=== PATIENT | female | born 1955 | race Caucasian/White ===

== ENCOUNTER 2022-12-29 20:34 | Emergency (ER) | payer MEDICARE ==
[2022-12-29] MEDS ORDERED: Albuterol/Ipratropium 3.0-0.5 MG/3 ML Neb Soln NEB ONE (22:03)
[2022-12-29] MEDS ORDERED: Acetaminophen 325 MG Tab PO ONE (22:03)
[2022-12-29] MEDS ORDERED: Lidocaine 4% 1 each Patch TOP PRN (22:03)
[2022-12-29] MEDS ORDERED: Doxycycline 100 MG Cap PO ONE (23:00)
[2022-12-29] MEDS ORDERED: Amoxicillin/Clavulanate K 875-125 MG Tab PO ONE (23:02)
[2022-12-29] MEDS ORDERED: Albuterol 8 GM Inhaler INH ONE (23:03)
== END 2022-12-30 00:39 | disposition home or self-care (01) ==
LOC: MW.ED 20:34
DX: J18.9 Pneumonia, unspecified organism (principal); I10 Essential (primary) hypertension; E78.00 Pure hypercholesterolemia, unspecified; J45.909 Unspecified asthma, uncomplicated; Z88.2 Allergy status to sulfonamides; Z79.899 Other long term (current) drug therapy
CPT/HCPCS: 71045; 94640; 99285; A9270; 99283; J7620-GY

== ENCOUNTER 2024-02-01 11:33 | Inpatient (IN) | payer BC, MEDICARE ==
[2024-02-01] MEDS: Acetaminophen 500 MG Tab PO STA (12:14)
[2024-02-01] MEDS: Piperacillin/Tazobactam 4.5 GM in Sodium Chloride 0.9% 100 ML IV STA (12:14)
[2024-02-01] MEDS: Sodium Chloride 0.9% 500 ML IV STA ×3 (12:14→17:48)
[2024-02-01 12:18] LABS: HEMATOCRIT 44.4 % (37.0-47.0); HEMOGLOBIN 15.1 g/dL (12.0-16.0); MEAN CORPUSCULAR HEMOGLOBIN 29.5 pg (28.0-32.0); MEAN CORPUSCULAR VOLUME 86.9 fL (83.0-99.0); MEAN PLATELET VOLUME 8.6 fL (9.4-12.3); PLATELET COUNT,PLT 163 K/uL (150-400); RED BLOOD CELL COUNT 5.11 M/uL (4.10-5.30); WHITE BLOOD CELL COUNT,WBC 7.12 K/uL (3.9-11.3)
[2024-02-01] MEDS: Albuterol/Ipratropium 3.0-0.5 MG/3 ML Neb Soln NEB STA (12:32)
[2024-02-01] MEDS: Albuterol 0.083% 2.5 MG/3 ML Neb Soln NEB STA (12:33)
[2024-02-01 12:59] LABS: A/G RATIO 0.9 (0.9-1.6); ALANINE AMINOTRANSFERASE,ALT 54 IU/L (14-63); ALBUMIN 3.1 g/dL (3.4-5.0); ALKALINE PHOSPHATASE 87 U/L (46-116); ASPARTATE AMNIOTRANSFERASE,AST 52 IU/L (15-37); BLOOD UREA NITROGEN,BUN 14 mg/dL (7.0-18.0); CALCIUM 8.8 mg/dL (8.5-10.1); CARBON DIOXIDE,CO2 32.2 mmol/L (21.0-32.0); CHLORIDE,CL 96 mmol/L (98-107); CREATININE 1.1 mg/dL (0.6-1.0); GLUCOSE RANDOM 126 mg/dL (74-106); LIPASE 52 U/L (16-77); PROTEIN TOTAL,TP 6.4 g/dL (6.4-8.2); SODIUM,NA 132 mmol/L (136-145)
[2024-02-01 13:02] LABS: BAND ABSOLUTE MAN 1.64; BAND PERCENT MAN 23 %; LACTIC ACID 1.7 mmol/L (0.4-2.0); LYMPHOCYTES ABSOLUTE MAN 0.93 K/uL (1.00-4.80); LYMPHOCYTES PERCENT MAN 13 % (24-44); METAMYELOCYTE ABSOLUTE MAN 0.07; MONOCYTES PERCENT MAN 7 % (0-8)
[2024-02-01 13:03] LABS: ESTIMATED GFR 54 mL/min (>60); SEG NEUTROPHILS ABSOLUTE MAN 4.13 K/uL (1.80-7.70); SEG NEUTROPHILS PERCENT MAN 58 % (41-71)
[2024-02-01 13:04] LABS: MAGNESIUM 1.1 mg/dL (1.8-2.4)
[2024-02-01 13:11] LABS: INR 1.16 (0.86-1.11)
[2024-02-01] MEDS: Magnesium Sulfate/Water Premix 4 GM in Premix Bag 1 BAG IV STA (13:16)
[2024-02-01] MEDS: Ondansetron 4 MG/2 ML SDV IVPUSH STA (13:19)
[2024-02-01] MEDS: Potassium Chloride 20 MEQ Tab.ER PO STA (13:19)
[2024-02-01] MEDS: Sodium Chloride 0.9% 1,000 ML IV STA (13:30)
[2024-02-01] MEDS: Norepinephrine Bit/D5W Premix 250 ML IV STA (14:47)
[2024-02-01] MEDS: Iopamidol 755 MG/ML 500 ML Multipack Bottle IVPUSH STA (16:18)
[2024-02-01 16:40] LABS: APPEARANCE,URINE CLOUDY; BILIRUBIN,URINE NEGATIVE (NEGATIVE); COLOR,URINE YELLOW; GLUCOSE,URINE NEGATIVE (NEGATIVE); KETONES,URINE NEGATIVE (NEGATIVE); LEUKOCYTE ESTERASE,URINE MODERATE (NEGATIVE); NITRITE,URINE NEGATIVE (NEGATIVE); OCCULT BLOOD,URINE MODERATE (NEGATIVE); PH,URINE 6.5 (5.0-8.0); PROTEIN,URINE TRACE mg/dL (NEGATIVE)
[2024-02-01 17:12] LABS: BACTERIA,URINE 4+ (NEGATIVE); EPITHELIAL CELLS,URINE RARE (NONE-FEW); RBC,URINE 0-1 (0-2/HPF)
[2024-02-01] MEDS: VANCOmycin 1.75 GM/350 ML 1.75 GM in Premix Bag 1 BAG IV ONE (17:48)
[2024-02-01] MEDS: Azithromycin 500 MG in Sodium Chloride 0.9% 250 ML IV STA (17:49)
[2024-02-01] MEDS: Norepinephrine Bit/D5W Premix 250 ML IV SCH (20:22)
[2024-02-01] MEDS: Cefepime 2 GM in Sodium Chloride 0.9% 50 ML IV SCH (21:05)
[2024-02-01] MEDS: Enoxaparin 40 MG/0.4 ML Syringe SUBCUT SCH (21:31)
[2024-02-01] MEDS: Cefepime 1 GM in Sodium Chloride 0.9% 50 ML IV SCH (21:40)
[2024-02-02] MEDS: Albuterol/Ipratropium 3.0-0.5 MG/3 ML Neb Soln NEB SCH (01:13)
[2024-02-02 06:17] LABS: HEMATOCRIT 37.7 % (37.0-47.0); HEMOGLOBIN 12.4 g/dL (12.0-16.0); MEAN CORPUSCULAR HEMOGLOBIN 29.2 pg (28.0-32.0); MEAN CORPUSCULAR HGB CONC 32.9 g/dL (32.0-36.0); MEAN CORPUSCULAR VOLUME 88.7 fL (83.0-99.0); MEAN PLATELET VOLUME 8.7 fL (9.4-12.3); PLATELET COUNT,PLT 112 K/uL (150-400); RED BLOOD CELL COUNT 4.25 M/uL (4.10-5.30); WHITE BLOOD CELL COUNT,WBC 10.93 K/uL (3.9-11.3)
[2024-02-02 06:38] LABS: A/G RATIO 0.8 (0.9-1.6); ALBUMIN 2.3 g/dL (3.4-5.0); BILIRUBIN TOTAL 0.7 mg/dL (0.2-1.0); CALCIUM 7.6 mg/dL (8.5-10.1); CARBON DIOXIDE,CO2 26.9 mmol/L (21.0-32.0); CREATININE 0.8 mg/dL (0.6-1.0); EST CRCL DRUG DOSING (CG) 54.13 mL/min; MAGNESIUM 2.2 mg/dL (1.8-2.4); PHOSPHORUS 2.2 mg/dL (2.6-4.7); POTASSIUM,K 3.1 mmol/L (3.5-5.1); PROTEIN TOTAL,TP 5.2 g/dL (6.4-8.2)
[2024-02-02 07:19] LABS: BAND ABSOLUTE MAN 1.64; BAND PERCENT MAN 15 %; LYMPHOCYTES ABSOLUTE MAN 1.31 K/uL (1.00-4.80); LYMPHOCYTES PERCENT MAN 12 % (24-44); MONOCYTES ABSOLUTE MAN 1.09 K/uL (0.00-0.80); MONOCYTES PERCENT MAN 10 % (0-8); SEG NEUTROPHILS ABSOLUTE MAN 6.89 K/uL (1.80-7.70); SEG NEUTROPHILS PERCENT MAN 63 % (41-71)
[2024-02-02] MEDS ORDERED: Albuterol 0.083% 2.5 MG/3 ML Neb Soln NEB PRN (07:22)
[2024-02-02] MEDS: Potassium Chloride 20 MEQ Tab.ER PO ONE (08:07)
[2024-02-02] MEDS: predniSONE 1 MG Tab PO SCH (08:12)
[2024-02-02] MEDS ORDERED: Loperamide 2 MG Cap PO PRN (10:09)
[2024-02-02] MEDS ORDERED: Psyllium Husk Powder Sugar Free 5.85 GM Packet PO SCH (10:15)
[2024-02-02] MEDS: Phosphorus #1 250 MG Tab PO SCH ×2 (12:57→14:33)
[2024-02-02] MEDS: Azithromycin 500 MG in Sodium Chloride 0.9% 250 ML IV SCH (17:59)
[2024-02-02] MEDS ORDERED: Zinc Oxide 13% Crm 56 GM Tube TOP PRN (18:13)
[2024-02-02] MEDS: Ibuprofen 400 MG Tab PO PRN (18:26)
[2024-02-02] MEDS: Benzonatate 100 MG Cap PO PRN (18:27)
[2024-02-02] MEDS: Zinc Oxide 13% Crm 56 GM Tube TOP SCH (20:04)
[2024-02-02] MEDS: guaiFENesin 600 MG Tab.ER PO PRN (20:13)
[2024-02-03 05:07] LABS: BORDETELLA PARAPERT IS1001 Not Detected (Not Detected)
[2024-02-03 06:48] LABS: HEMATOCRIT 34.8 % (37.0-47.0); HEMOGLOBIN 11.7 g/dL (12.0-16.0); MEAN CORPUSCULAR HGB CONC 33.6 g/dL (32.0-36.0); MEAN CORPUSCULAR VOLUME 89.2 fL (83.0-99.0); MEAN PLATELET VOLUME 8.9 fL (9.4-12.3); PLATELET COUNT,PLT 125 K/uL (150-400); WHITE BLOOD CELL COUNT,WBC 11.25 K/uL (3.9-11.3)
[2024-02-03 06:58] LABS: A/G RATIO 0.9 (0.9-1.6); ALBUMIN 2.4 g/dL (3.4-5.0); BILIRUBIN TOTAL 0.6 mg/dL (0.2-1.0); CALCIUM 7.5 mg/dL (8.5-10.1); CARBON DIOXIDE,CO2 24.6 mmol/L (21.0-32.0); CREATININE 0.7 mg/dL (0.6-1.0); EST CRCL DRUG DOSING (CG) 61.86 mL/min; PHOSPHORUS 2.5 mg/dL (2.6-4.7); POTASSIUM,K 3.9 mmol/L (3.5-5.1)
[2024-02-03 08:07] LABS: BAND ABSOLUTE MAN 0.56; BAND PERCENT MAN 5 %; LYMPHOCYTES ABSOLUTE MAN 1.24 K/uL (1.00-4.80); LYMPHOCYTES PERCENT MAN 11 % (24-44); METAMYELOCYTE ABSOLUTE MAN 0.11; METAMYELOCYTE PERCENT MAN 1 %; MONOCYTES ABSOLUTE MAN 0.23 K/uL (0.00-0.80); MONOCYTES PERCENT MAN 2 % (0-8); SEG NEUTROPHILS ABSOLUTE MAN 9.11 K/uL (1.80-7.70); SEG NEUTROPHILS PERCENT MAN 81 % (41-71)
[2024-02-03] MEDS ORDERED: Sodium Phosphate 15 mMole/5 ML SDV IV ONE (09:00)
[2024-02-03] MEDS: Sodium Phosphate 15 MMOLE in Sodium Chloride 0.9% 250 ML IV ONE (09:27)
[2024-02-03] MEDS: Calcium Gluc in NaCl, ISO-OSM 1,000 MG in Premix Bag 1 BAG IV ONE (09:27)
[2024-02-03] MEDS: Metoprolol Succinate 100 MG Tab.ER PO SCH (22:31)
[2024-02-04 06:35] LABS: BASOPHILS ABSOLUTE AUTO 0.02 K/uL (0.00-0.20); BASOPHILS PERCENT AUTO 0.2 % (0.0-1.0); EOSINOPHILS PERCENT AUTO 1.1 % (0.0-6.0); HEMATOCRIT 35.3 % (37.0-47.0); HEMOGLOBIN 11.6 g/dL (12.0-16.0); IMMATURE GRAN PERCENT AUTO 1.1 % (0.0-0.4); LYMPHOCYTES ABSOLUTE AUTO 0.97 K/uL (1.00-4.80); LYMPHOCYTES PERCENT AUTO 10.5 % (24.0-44.0); MEAN CORPUSCULAR HGB CONC 32.9 g/dL (32.0-36.0); MEAN CORPUSCULAR VOLUME 88.3 fL (83.0-99.0); MEAN PLATELET VOLUME 8.6 fL (9.4-12.3); MONOCYTES PERCENT AUTO 5.4 % (0.0-8.0); NEUTROPHILS ABSOLUTE AUTO 7.51 K/uL (1.80-7.70); NEUTROPHILS PERCENT AUTO 81.7 % (41.0-71.0); PLATELET COUNT,PLT 148 K/uL (150-400)
[2024-02-04 07:01] LABS: CALCIUM 8.4 mg/dL (8.5-10.1); CREATININE 0.7 mg/dL (0.6-1.0); EST CRCL DRUG DOSING (CG) 61.86 mL/min; MAGNESIUM 1.7 mg/dL (1.8-2.4); PHOSPHORUS 2.6 mg/dL (2.6-4.7); POTASSIUM,K 3.9 mmol/L (3.5-5.1)
[2024-02-04] MEDS ORDERED: Magnesium Sulfate/Water 2 GM/50 ML Premix Bag IV ONE (08:50)
[2024-02-04] MEDS: Sertraline 50 MG Tab PO SCH (09:31)
[2024-02-04] MEDS: Hydrochlorothiazide 25 MG Tab PO SCH (09:31)
[2024-02-04] MEDS: Magnesium Sulfate/Water Premix 2 GM in Premix Bag 1 BAG IV ONE (09:32)
[2024-02-04] MEDS: Acetaminophen 325 MG Tab PO PRN (09:32)
[2024-02-04] MEDS: Diltiazem 180 MG Cap.CD PO SCH (20:34)
[2024-02-04] MEDS: atorvaSTATin 40 MG Tab PO SCH (20:34)
[2024-02-05 07:29] LABS: MAGNESIUM 1.8 mg/dL (1.8-2.4); PHOSPHORUS 2.8 mg/dL (2.6-4.7)
[2024-02-05 08:08] LABS: A/G RATIO 0.7 (0.9-1.6); ALBUMIN 2.2 g/dL (3.4-5.0); BILIRUBIN TOTAL 0.8 mg/dL (0.2-1.0); CALCIUM 8.1 mg/dL (8.5-10.1); CARBON DIOXIDE,CO2 21.3 mmol/L (21.0-32.0); CREATININE 0.7 mg/dL (0.6-1.0); EST CRCL DRUG DOSING (CG) 61.86 mL/min; POTASSIUM,K 4.2 mmol/L (3.5-5.1); PROTEIN TOTAL,TP 5.3 g/dL (6.4-8.2)
[2024-02-05 08:15] LABS: HEMATOCRIT 33.8 % (37.0-47.0); HEMOGLOBIN 11.1 g/dL (12.0-16.0); MEAN CORPUSCULAR HEMOGLOBIN 29.3 pg (28.0-32.0); MEAN CORPUSCULAR HGB CONC 32.8 g/dL (32.0-36.0); MEAN CORPUSCULAR VOLUME 89.2 fL (83.0-99.0); PLATELET COUNT,PLT 215 K/uL (150-400); RED BLOOD CELL COUNT 3.79 M/uL (4.10-5.30); WHITE BLOOD CELL COUNT,WBC 7.75 K/uL (3.9-11.3)
[2024-02-05] MEDS: Pantoprazole 40 MG in Sodium Chloride 0.9% 10 ML IVPUSH ONE (08:26)
[2024-02-05 08:50] LABS: EOSINOPHILS ABSOLUTE MAN 0.16 K/uL (0.00-0.45); EOSINOPHILS PERCENT MAN 2 % (0-6); LYMPHOCYTES ABSOLUTE MAN 0.85 K/uL (1.00-4.80); LYMPHOCYTES PERCENT MAN 11 % (24-44); METAMYELOCYTE ABSOLUTE MAN 0.16; METAMYELOCYTE PERCENT MAN 2 %; MONOCYTES ABSOLUTE MAN 0.93 K/uL (0.00-0.80); MONOCYTES PERCENT MAN 12 % (0-8); MYELOCYTE ABSOLUTE MAN 0.08; MYELOCYTE PERCENT MAN 1 %; SEG NEUTROPHILS ABSOLUTE MAN 0.08 K/uL (1.80-7.70); SEG NEUTROPHILS PERCENT MAN 1 % (41-71)
== END 2024-02-05 16:48 | disposition home or self-care (01) | DRG 871 ==
LOC: MW.ED 11:33 → UNDOADMIN 18:07 → MW.ICU 18:07 → MW.MS 02-03 14:52
PROVIDERS: ADMIT Internal Medicine; ATTEND Internal Medicine
PROC: 3E03329 Introduction of Other Anti-infective into Peripheral Vein, Percutaneous Approach (ICD-10-PCS; principal; 2024-02-01)
PROC: 3E033XZ Introduction of Vasopressor into Peripheral Vein, Percutaneous Approach (ICD-10-PCS; 2024-02-01)
PROC: 05HM33Z Insertion of Infusion Device into Right Internal Jugular Vein, Percutaneous Approach (ICD-10-PCS; 2024-02-01)
DX: A41.9 Sepsis, unspecified organism (principal); J18.9 Pneumonia, unspecified organism; R65.21 Severe sepsis with septic shock; N30.01 Acute cystitis with hematuria; I10 Essential (primary) hypertension; E78.00 Pure hypercholesterolemia, unspecified; E83.42 Hypomagnesemia; J45.909 Unspecified asthma, uncomplicated; M19.90 Unspecified osteoarthritis, unspecified site; E87.6 Hypokalemia; R79.89 Other specified abnormal findings of blood chemistry; Z88.2 Allergy status to sulfonamides; Z75.8 Other problems related to medical facilities and other health care; Z79.899 Other long term (current) drug therapy
CPT/HCPCS: 36415 ×2; 71045 ×2; 71275; 74177; 80053 ×2; 80202; 81001; 83605; 83690; 83735 ×2; 83880; 84100; 84145; 84484; 85025 ×2; 85610; 87040 ×2; 87086; 87428; 87641; 93005; 94640 ×2; A9270 ×8; J0456; J0613; J0692 ×2; J2543; J3371; J3372; J3475; J3490 ×3; J7030; J7040 ×3; J7050 ×4; Q9967; 80048; 87045; 87046; 87070; 87077; 87186; 87205; 87324; 87449; 87486; 87581; 87633; 87899; 93010; 99291; J1650; J2405; J2470; J7620-GY